=== PATIENT | male | born 1955 | race Caucasian/White ===

== ENCOUNTER 2019-04-29 15:42 | Observation (INO) | payer OTHER, MEDICARE ==
[~2019-04-29 15:42] MED LIST: Iopamidol-370 76% 500 ML 1 ML ONE
[2019-04-29 16:49] LABS: #Basophils 0.1 thou/uL (0.0-0.2); #Eosinphils 0.5 thou/uL (0.0-0.7); #Lymphocytes 1.9 thou/uL (1.20-3.40); #Monocytes 0.6 thou/uL (0.11-0.59); #Neutrophils 4.8 thou/uL (1.40-6.50); %Basophils 1.1 % (0.0-1.0); %Eosinophils 5.8 % (0.0-10.0); %Lymphocytes 24.4 % (21.0-51.0); %Monocytes 7.9 % (0.0-10.0); %Neutrophils 60.7 % (42.0-75.0); Hemoglobin 14.5 g/dL (14.0-18.0); Mean Corpuscular HGB CONC 35.2 g/dL (32.0-36.0); Mean Corpuscular Hemoglobin 30.6 pg (27.0-31.0); Mean Corpuscular Volume 86.8 fL (78.0-98.0); Mean Platelet Volume 7.7 fL (7.4-10.4); Platelet Count 266 thou/uL (130-400); RBC Distribution Width 11.9 % (11.5-14.5); Red Blood Cell (RBC) Count 4.74 mill/uL (4.70-6.10); White Blood Cell (WBC) Count 7.9 thou/uL (4.8-10.8)
[2019-04-29 17:09] LABS: ALT (SGPT) 37 U/L (8-55); AST (SGOT) 23 U/L (5-34); Albumin 4.4 g/dL (3.4-4.8); Alkaline Phosphatase 80 U/L (40-110); Anion Gap 12 mmol/L (10-20); BUN (Urea Nitrogen) 14 mg/dL (8.4-25.7); Bilirubin, Total 0.8 mg/dL (0.2-1.2); Calc. Creatinine Clearance 0 mL/min (70-130); Calcium 9.1 mg/dL (7.8-10.44); Carbon Dioxide 24 mmol/L (23-31); Chloride 109 mmol/L (98-107); Estimated GFR-MDRD Greater than 90; Globulin 2.9 g/dL (2.4-3.5); Glucose 99 mg/dL (80-115); Potassium 3.8 mmol/L (3.5-5.1); Protein, Total 7.3 g/dL (5.8-8.1); Sodium 141 mmol/L (136-145)
--- NOTE | 2019-04-29 17:48 | CT ---
CT OF FACIAL BONES PERFORMED WITH CONTRAST ENHANCEMENT: 04/29/19 HISTORY: Patient felt pain in left jaw. History of recent oral surgery. The visualized brain parenchyma appears unremarkable. The parotid and submandibular glands appear unremarkable. The epiglottis region appears unremarkable. Parapharyngeal spaces are clear. Tonsillar region appears unremarkable. Some minimal mucosa change is seen within the left maxillary and bilateral ethmoid air cells. There is a fracture through the left side of the body of the mandible. This occurs along the posterio r aspect of an expanded portion of the mandible. Teeth are absent in this region. This is an area of presumably the patient's recent surgery. The fracture is nondisplaced. Condyle is in normal position. The left condyle and left side of the mandible are unremarkable. IMPRESSION: Apparent postoperative changes of the left side of the mandible. There is an expansile cystic appeari ng area involving the body of the mandible with a nondisplaced fracture through the posterior aspect of this expanded portion of the bone. POS: ZENAIDA
[2019-04-29] MEDS ORDERED: Ketorolac Tromethamine 30 MG/ML VIAL ONE (17:55)
[2019-04-29] MEDS ORDERED: Morphine 4 MG/ML VIAL ONE ×2 (17:55→20:12)
--- NOTE | 2019-04-29 19:10 | RAD ---
PORTABLE CHEST: 04/29/19 HISTORY: Preop. COMPARISON: 12/15/15 study. Heart size and mediastinum are within normal limits. The lungs are clear of infiltrates. No significa nt bony findings. IMPRESSION: No active intrathoracic disease. POS: ZENAIDA
[2019-04-29] MEDS ORDERED: Ondansetron PF 4 MG/2 ML Vial IVP PRN (20:20)
[2019-04-29] MEDS ORDERED: hydrALAZINE 20 MG/ML VIAL SLOW IVP PRN (20:22)
--- NOTE | 2019-04-29 21:32 | HP ---
TIME OF ASSESSMENT: 1999 REASON FOR ADMISSION: Status post postoperative jaw fracture. HISTORY OF PRESENT ILLNESS: Mr. Welsh is a 64-year-old gentleman who presented to the emergency department with sudden onset of severe left-sided lower jaw pain. The patient states he had oral surgery three weeks ago. He apparently developed an infection involving the bilateral lower wisdom teeth. He required antibiotics and extraction of a total of five teeth. He states the jaw had to be shaved down thin on the left lower posterior mandible. He was advised not to chew anything hard on that side due to risk of fracture. The patient states today he went to rip a piece of skin from its finger using his front teeth and felt a sudden severe pain in the left side of his jaw. He had immediate swelling. Denies any bleeding. On arrival to the emergency department, he underwent CT imaging which showed an expansile cystic appearing area involving the body of the mandible with a nondisplaced fracture to the posterior aspect of that expanded portion of the bone. He had apparent postoperative changes on the left side of the mandible. His case was discussed with [facility] [place] who advised admission to the hospital with plans to have him undergo surgery tomorrow morning. He was advised to be admitted to the medical service for cardiac risk stratification preop per [facility] [place]. At this present time, the patient states his pain is well controlled. He was given Toradol and morphine in the emergency department. He has undergone an EKG which showed normal sinus rhythm with no ST changes or T-wave abnormalities. He has had laboratory studies done showing a normal white count of 7.9, hemoglobin 14.5, hematocrit 41.2, and platelets 266. BUN 14, creatinine 0.81, and GFR greater than 90. Troponin was done and negative. Chest x-ray was done showing no active intrathoracic disease. Patient has no complaints of chest pain or shortness of breath. Patient reports a history of mitral valve prolapse and MD x2. He follows with Dr. Miranda regularly and saw him for preoperative clearance prior to the most recent oral surgery. REVIEW OF SYSTEMS: All other review of systems apart from those mentioned above in HPI are negative. ALLERGIES: CODEINE, DEMEROL, MEPERIDINE, AND TYLENOL WITH CODEINE NO. 3. CURRENT MEDICATIONS: 1. Lisinopril. 2. Pantoprazole. 3. Simvastatin. 4. Metoprolol. 5. Fish oil. 6. Aspirin. PAST MEDICAL HISTORY: 1. Hypertension. 2. Hyperlipidemia. 3. Coronary artery disease. 4. MD x2, 2006 and 2010. No stents placed. 5. Mitral valve prolapse. 6. Chronic back pain. 7. GERD. 8. Asbestosis. PAST SURGICAL HISTORY: 1. Tonsillectomy. 2. Back surgery. 3. Cholecystectomy. 4. Colonoscopy x3. 5. Right knee surgery. 6. Oral surgery/extraction of teeth three weeks ago. SOCIAL HISTORY: Patient dips and reports drinking alcohol socially every 3 to 5 days. Denies any drug use. PHYSICAL EXAMINATION: GENERAL: Patient appears well developed, well nourished, is in no acute distress. VITAL SIGNS: Temperature 98.1, pulse 68, respirations 18, O2 saturation 96% on room air, and blood pressure 139/79. HEENT: Normocephalic and atraumatic. Pupils are equal, round, and reactive to light. Sclerae without icterus. Oropharynx, limited range of motion, but able to speak. Slight swelling to the left mandibular region. NECK: Supple. Mild discomfort to the left upper neck region. LUNGS: Clear to auscultation bilaterally. CARDIAC: Regular rate and rhythm. ABDOMEN: Soft, nontender, and nondistended. Normoactive bowel sounds present. No guarding or rigidity. No renal angle tenderness. EXTREMITIES: No lower leg swelling or edema. Peripheral pulses intact. SKIN: Warm and dry. INVESTIGATIONS: As mentioned above in the HPI. IMPRESSION AND PLAN: Mr. Welsh is a pleasant 64-year-old gentleman who is being admitted under the medical service due to his comorbidities and cardiac risk after presenting with severe left mandibular pain due to a nondisplaced fracture, status post recent tooth extraction three weeks ago. Patient with no signs of underlying infection. He is most concerned with his history of mitral valve prolapse and wanting to be seen by Dr. Miranda, his document review specialist, prior to surgery, with whom he had preoperative clearance with before his most recent surgery. EKG unremarkable. Troponin negative. Patient without any chest pain. He will be admitted under the medical service. We will continue with the following. 1. Per OMFS, patient will be n.p.o. at midnight. Plans for surgery tomorrow. EKG normal. We will obtain coag studies in the morning. Consult placed to Dr. Miranda for cardiac clearance. 2. Continue pain management. 3. We will monitor blood pressure and resume home medications once verified. We will order IV p.r.n. antihypertensives as well. 4. GI prophylaxis with famotidine 20 mg b.i.d. IV. 5. Deep venous thrombosis prophylaxis with mechanical SCDs. Anticoagulation contraindicated. Patient is ambulatory. 6. Code status full. Surrogate decision maker is his , Jaswinder Welsh. Patient's case was discussed with Dr. Ruby, who agrees with plan of care as described above. Job ID: [id number]
[2019-04-29] MEDS: Famotidine/PF 20 mg/2ml Vial SLOW IVP SCH (21:54)
[2019-04-29 22:11] LABS: Lactic Acid 0.9 mmol/L (0.5-2.2)
[2019-04-29] MEDS: Sodium Chloride 0.45% 1,000 ML IV SCH (23:22)
[2019-04-29] MEDS: Morphine 2 MG/ML SYRINGE SLOW IVP PRN (23:41)
[2019-04-30 00:58] VITALS: BMI 28.9
[2019-04-30] MEDS ORDERED: Morphine 2 MG/ML SYRINGE SLOW IVP SCH ×2 (02:15→10:00)
[2019-04-30] MEDS: Acetaminophen 650 MG in Premix Bag 1 BAG IVPB PRN ×3 (02:25→18:23)
[2019-04-30] MEDS: Morphine 2 MG/ML SYRINGE SLOW IVP PRN ×3 (05:43→21:27)
[2019-04-30 05:46] LABS: #Eosinphils 0.6 thou/uL (0.0-0.7); #Lymphocytes 2.6 thou/uL (1.20-3.40); #Monocytes 0.7 thou/uL (0.11-0.59); %Basophils 0.8 % (0.0-1.0); %Eosinophils 10.7 % (0.0-10.0); %Lymphocytes 42.9 % (21.0-51.0); %Monocytes 12.1 % (0.0-10.0); %Neutrophils 33.6 % (42.0-75.0); Hemoglobin 13.6 g/dL (14.0-18.0); Mean Corpuscular HGB CONC 34.4 g/dL (32.0-36.0); Mean Corpuscular Hemoglobin 30.1 pg (27.0-31.0); Mean Corpuscular Volume 87.6 fL (78.0-98.0); Mean Platelet Volume 7.8 fL (7.4-10.4); Platelet Count 240 thou/uL (130-400); RBC Distribution Width 11.9 % (11.5-14.5); Red Blood Cell (RBC) Count 4.51 mill/uL (4.70-6.10)
[2019-04-30 05:51] LABS: INR-International Normal Ratio 1.1; PTT 30.7 SEC (22.9-36.1); Prothrombin Time 14.4 SEC (12.0-14.7)
[2019-04-30 06:07] LABS: Anion Gap 13 mmol/L (10-20); BUN (Urea Nitrogen) 14 mg/dL (8.4-25.7); Calc. Creatinine Clearance 126 mL/min (70-130); Calcium 8.4 mg/dL (7.8-10.44); Carbon Dioxide 23 mmol/L (23-31); Chloride 107 mmol/L (98-107); Estimated GFR-MDRD Greater than 90; Glucose 95 mg/dL (80-115); Potassium 3.7 mmol/L (3.5-5.1); Sodium 139 mmol/L (136-145)
[2019-04-30] MEDS: Famotidine/PF 20 mg/2ml Vial SLOW IVP SCH ×2 (08:38→21:39)
[2019-04-30] MEDS ORDERED: FLU VACC QS2019-20(6MOS UP)/PF 60 MCG/0.5 ML SYRINGE IM ONE (09:00)
[2019-04-30] MEDS ORDERED: Lidocaine 1% w/Epinephrine 1:100K 20 ML VIAL ONE (10:01)
[2019-04-30] MEDS ORDERED: Chlorhexidine Gluconate 15 ML UDCUP SSP ONE ×2 (10:01→12:39)
[2019-04-30] MEDS ORDERED: Bacitracin Zinc Ointment 30 gm TUBE ONE (10:01)
[2019-04-30] MEDS ORDERED: CEFAZOLIN 2 GM in Premix Bag 1 BAG IVPB SCH (10:15)
[2019-04-30] MEDS ORDERED: Dexamethasone 10 MG/ML VIAL SLOW IVP SCH (10:15)
[2019-04-30] MEDS ORDERED: Scopolamine 1.5 mg/72 hour Patch ONE (11:13)
[2019-04-30] MEDS ORDERED: Ondansetron PF 4 MG/2 ML Vial ONE ×2 (11:13→14:01)
[2019-04-30] MEDS ORDERED: Famotidine/PF 20 mg/2ml Vial ONE (11:13)
[2019-04-30] MEDS ORDERED: Fentanyl 100 MCG/2 ML VIAL ONE ×2 (11:17→14:51)
[2019-04-30] MEDS ORDERED: Ketamine 50 MG/ML (10ML VIAL) ONE (11:18)
--- NOTE | 2019-04-30 11:31 | CON ---
DATE OF CONSULTATION: REASON FOR CONSULTATION: Preoperative clearance for jaw surgery. HISTORY OF PRESENT ILLNESS: Mr. Welsh is a 64-year-old gentleman, whom I have seen and evaluated in the past. He has a history of previous NM in 2006, not amenable to percutaneous intervention. He states he had small vessel disease. This is at an outlying facility. He has done well since that time. He does have a history of kzwvaita-fm-stqrfi mitral regurgitation. He recently broke his jaw. Please see details from surgeon. He denies chest pain or pressure. He states he is not limited from an activity standpoint. He is very active. No PND, orthopnea, lower extremity edema, syncope, or presyncope present. PAST MEDICAL HISTORY: As above including; 1. Hypertension. 2. Hyperlipidemia. 3. Acid reflux. 4. Cholecystectomy. HOME MEDICATIONS: Include; 1. Fish oil. 2. Aspirin. 3. Pantoprazole. 4. Lisinopril. 5. Metoprolol. 6. Zocor. FAMILY HISTORY: Negative for CAD. ALLERGIES: ACETAMINOPHEN, MEPERIDINE. REVIEW OF SYSTEMS: A 10-point review of systems is reviewed and as above, otherwise negative. PHYSICAL EXAMINATION: VITAL SIGNS: Blood pressure 126/78, pulse 65, temperature 97.9. GENERAL: Patient is a pleasant gentleman, who is in no acute distress. The patient appears their stated age. NEUROLOGIC: The patient is alert and oriented x3 with no focal neurologic deficits. HEENT: Sclerae without icterus. Mouth has moist mucous membranes with normal pallor. NECK: No JVD. Carotid upstroke brisk. No bruits bilaterally. LUNGS: Clear to auscultation with unlabored respirations. BACK: No scoliosis or kyphosis. CARDIAC: Regular rate and rhythm with 2/6 systolic ejection murmur. ABDOMEN: Soft, nontender, nondistended. No peritoneal signs present. No hepatosplenomegaly. No abnormal striae. EXTREMITIES: 2+ femoral and 2+ dorsalis pedis pulses. No cyanosis, clubbing, or edema. SKIN: No gross abnormalities. DIAGNOSTIC DATA: Echo Doppler showed normal LVEF with wvzxwvuj-ga-crdvzt MR, mitral valve prolapse present. PERTINENT LABORATORY DATA: CK troponin negative. Hemoglobin 13.6. IMPRESSION: 1. Preoperative clearance. 2. Recent jaw fracture. 3. Previous history of coronary artery disease. RECOMMENDATIONS: Mr. Welsh is a very active person with no current symptoms. His activity is not limited. He gives a history of having CAD with NM of unknown intensity noted over 10 years ago. He states he was found to have very small vessel disease. I discussed the case with the surgeon. There going to be minimal fluid shifts noted with minimal blood loss. At this point, I would feel Mr. Welsh is at low risk for cardiac complications. Otherwise, I have no further recommendations. From my standpoint, he will be okay to transfer back to the surgical floor unless changes arise. We will follow peripherally. Job ID: [id number]
[2019-04-30] MEDS ORDERED: Midazolam HCl 2 mg/2 ml Vial ONE (11:51)
[2019-04-30] MEDS ORDERED: Bupivacaine PF 0.5% 30 ML VIAL ONE (13:58)
[2019-04-30] MEDS ORDERED: PROPOFOL 200 MG/20 ML VIAL ONE (14:01)
[2019-04-30] MEDS ORDERED: Glycopyrrolate 0.2 MG/ML 5 ML SYRINGE ONE (14:01)
[2019-04-30] MEDS ORDERED: Lidocaine 1% PF 5 ML VIAL ONE (14:01)
[2019-04-30] MEDS ORDERED: Labetalol HCl 100 MG/20 ML VIAL ONE (14:01)
[2019-04-30] MEDS ORDERED: Dexamethasone 20 MG/5 ML VIAL ONE (14:01)
[2019-04-30] MEDS ORDERED: Rocuronium Bromide 10 MG/ML (10ML VIAL) ONE (14:01)
[2019-04-30] MEDS ORDERED: Succinylcholine Chloride 20 MG/ML 10 ml SYRINGE FS ONE (14:01)
[2019-04-30] MEDS ORDERED: HYDROmorphone 2 MG/ML VIAL ONE (14:02)
[2019-04-30] MEDS ORDERED: Promethazine HCl 25 MG/ML VIAL IM PRN (15:05)
[2019-04-30] MEDS ORDERED: Ondansetron HCl/PF 4 MG/2 ML Vial IVP PRN (15:05)
[2019-04-30] MEDS ORDERED: Promethazine HCl 25 MG/ML VIAL SLOW IVP PRN (15:05)
--- NOTE | 2019-04-30 15:29 | CT ---
CT facial bones: Multiple axial tones obtained through facial bones without contrast. Multiplanar reconstruction. INDICATIONS:Open reduction internal fixation mandible. Extraction of tooth left mandible with seconda ry infection. Underwent debridement and open reduction. COMPARISON:None FINDINGS: Nasal bones appear intact. There is fracture involving the floor the orbit on the left, probably old injury. Orbital fat herniat es through this defect into the roof of the left maxillary sinus. No entrapment of any extraocular muscle. zygoma appear intact. Paranasal sinuses are well aerated.Mild mucosal edema in the ethmoid air cells. Tiny mucous retention cyst medial wall left maxillary sinus. Maxilla is intact. All maxillary teeth have been extracted. Review of mandible reveals metallic plate along the lateral mandible on the left at the ramus transf ixing a mandibular fracture. Mandibular molars have been extracted. Cortical debridement along the buccal surface the mandible is consistent with postoperative change. Tiny gas pockets in the subcutan eous tissues consistent with postoperative change. No evidence of fluid collection or abscess collection. Haziness in the subcutaneous soft tissues and thickening of the platysma could represent postoperative or inflammatory change. IMPRESSION: Postoperative changes left mandible. Haziness in the subcutaneous tissues could represent postoperati ve or infectious change. No focal fluid or abscess collection.
--- NOTE | 2019-04-30 17:26 | PDOC.HOSPP ---
- Subjective Encounter Date: 04/30/19 Encounter Time: 09:53 Subjective: 64 y/o with CAD, mitral prolapse, HTN, with recent teeth extraction admitted with acute onset of left jaw pain and swelling. Evaluation showed acyute jaw fracture. Surgery is planned. Feeling better with better analgesia. - Objective Vital Signs & Weight: Vital Signs (12 hours) Temp Pulse Resp BP Pulse Ox 04/30/19 15:20 98.6 F 91 18 160/89 H 94 L 04/30/19 11:20 98.4 F 63 20 131/79 96 04/30/19 07:47 97.9 F 65 20 126/78 96 Weight Weight 207 lb 6.4 oz I&O: 04/29/19 04/30/19 05/01/19 06:59 06:59 06:59 Intake Total 986 Balance 986 Result Diagrams: 04/30/19 05:33 04/30/19 05:32 Hospitalist ROS - Medication Medications: Active Medications Generic Name Dose Route Start Last Admin Trade Name Freq PRN Reason Stop Dose Admin Famotidine 20 mg 04/29/19 21:00 04/30/19 08:38 Pepcid SLOW IVP 20 mg Q12HR PETE Administration Sodium Chloride 1,000 mls @ 50 mls/hr 04/29/19 22:45 04/29/19 23:22 1/2 Normal Saline IV 1,000 mls .Q20H PETE Administration Acetaminophen 650 mg/ Device 65 mls @ 260 mls/hr 04/30/19 02:08 04/30/19 08: 38 IVPB 05/01/19 02:09 65 mls Q6H PRN Administration Mild Pain (1-3) Morphine Sulfate 2 mg 04/30/19 14:54 04/30/19 16:16 Morphine SLOW IVP 2 mg Q4H PRN Administration Pain - Exam General Appearance: awake alert Eye: anicteric sclera ENT: normocephalic atraumatic, moist mucosa Neck: supple, symmetric, no JVD Heart: RRR Respiratory: no wheezes, no rales, no ronchi, normal chest expansion Gastrointestinal: soft, non-tender, non-distended, normal bowel sounds Extremities: no cyanosis, no edema Neurological: cranial nerve grossly intact, no focal deficits Psychiatric: normal affect, A&O x 3 Hosp A/P (1) Fracture of left side of mandibular body Code(s): S02.602A - FRACTURE OF UNSPECIFIED PART OF BODY OF LEFT MANDIBLE, INIT Status: Acute (2) Acute pain Code(s): R52 - PAIN, UNSPECIFIED Status: Acute (3) GERD (gastroesophageal reflux disease) Code(s): K21.9 - GASTRO-ESOPHAGEAL REFLUX DISEASE WITHOUT ESOPHAGITIS Status: Acute (4) CAD (coronary artery disease) Code(s): I25.10 - ATHSCL HEART DISEASE OF [place] CORONARY ARTERY W/O ANG PCTRS Status: Chronic (5) Dyslipidemia Code(s): E78.5 - HYPERLIPIDEMIA, UNSPECIFIED Status: Chronic (6) Hypertension Code(s): I10 - ESSENTIAL (PRIMARY) HYPERTENSION Status: Chronic - Plan Continue analgesic as needed Surgery by [facility] Continue other treatments.
[2019-04-30] MEDS: Sodium Chloride 0.45% 1,000 ML IV SCH (18:18)
[2019-04-30] MEDS: Ibuprofen 600 MG TAB PO PRN (18:23)
[2019-04-30] MEDS ORDERED: Dexamethasone 4 mg/ml Vial SLOW IVP SCH (20:00)
[2019-04-30] MEDS: CEFAZOLIN 2 GM in Premix Bag 1 BAG IVPB SCH (21:38)
[2019-04-30] MEDS: Chlorhexidine Gluconate 15 ML UDCUP SSP SCH (22:13)
[2019-05-01] MEDS: Morphine 2 MG/ML SYRINGE SLOW IVP PRN (02:50)
[2019-05-01] MEDS: CEFAZOLIN 2 GM in Premix Bag 1 BAG IVPB SCH ×2 (04:46→13:02)
[2019-05-01] MEDS: Chlorhexidine Gluconate 15 ML UDCUP SSP SCH (08:07)
[2019-05-01] MEDS: Famotidine/PF 20 mg/2ml Vial SLOW IVP SCH (08:07)
[2019-05-01] MEDS: Ibuprofen 600 MG TAB PO PRN (08:14)
[2019-05-01 10:46] VITALS: BP 147/80; TEMP 97.9
--- NOTE | 2019-05-01 19:44 | DIS ---
DATE OF ADMISSION: 04/29/2019 DATE OF DISCHARGE: 05/01/2019 DISCHARGE DIAGNOSES: 1. Left mandibular fracture. 2. Acute traumatic pain. 3. Gastroesophageal reflux disease. 4. Coronary artery disease. 5. Dyslipidemia. 6. Hypertension. 7. Chronic diastolic heart failure. 8. Cjokhdqu-jn-xfcuet mitral regurgitation. 9. Mitral prolapse. CONSULTS: 1. Cardiology. 2. Oral Maxillofacial Surgery. HOSPITAL COURSE: A 64-year-old male with known history of coronary artery disease, mitral valve prolapse, hypertension, who recently had left jaw teeth extraction for infection and admitted with acute onset of left jaw pain and swelling. Evaluation showed acute mandibular fracture. Oral Maxillofacial Surgery consult was obtained and following cardiac clearance by Cardiology, the patient had open reduction and internal fixation of the fractured left mandible. Postoperative recovery was uneventful and the patient was subsequently discharged home. PHYSICAL EXAMINATION: VITAL SIGNS: Temperature 97.9, pulse 75, respiratory rate 20, SpO2 of 95% on room air, blood pressure 147/80. GENERAL: Male patient, in no obvious distress. Afebrile. Anicteric. Acyanotic. HEENT: Normocephalic. Mild left jaw and lower facial swelling. Oral mucosa is moist. CARDIOVASCULAR: Regular rhythm and rate with normal heart sounds 1 and 2. Soft systolic murmur noted. RESPIRATORY: Good air entry bilaterally with no obvious crackle or rhonchi or use of accessory muscles. GI: Full, soft, nontender, nondistended with normal bowel sounds. EXTREMITIES: Grossly normal looking, atraumatic with no obvious edema or erythema. MANAGER SOCIAL: Conscious, alert, oriented x3 with appropriate mental status. DISCHARGE DISPOSITION: Home. DISCHARGE CONDITION: Improved. DISCHARGE INSTRUCTIONS: 1. The patient is to follow up with oral maxillofacial surgeon in 1 week. 2. The patient was instructed to be on non-chewable foods, but especially on large lipids in the next 6 weeks. DISCHARGE MEDICATIONS: 1. Aspirin 81 mg p.o. daily. 2. Lisinopril 40 mg p.o. daily. 3. Metoprolol 25 mg p.o. daily. 4. [place]-3 fatty acid one capsule p.o. daily. 5. Protonix 40 mg p.o. daily. 6. Simvastatin 20 mg p.o. daily at the evening. 7. Chlorhexidine gluconate mouthwash 15 mL swish and spit. 8. Hydrocodone/acetaminophen 5/325 every 4 hours p.r.n. This discharge took less than 30 minutes. Job ID: [id number]
--- NOTE | 2019-05-05 10:55 | OP ---
DATE OF PROCEDURE: 04/29/2019 PREOPERATIVE DIAGNOSIS: Left mandibular body angle fracture, nonrestorable tooth #20. POSTOPERATIVE DIAGNOSIS: Left mandibular angle body fracture, nonrestorable tooth #20. PROCEDURES PERFORMED: Open reduction and internal fixation of left mandibular angle body fracture, extraction of tooth #20. TECHNICAL FELLOW SURGEON: Alli Fernandez DDS, MD, oral maxillofacial surgeon. FLUIDS: 1500 mL of isotonic crystalloid. ESTIMATED BLOOD LOSS: 25 mL. FINDINGS: Complete linear mandibular left body fracture, 1 x 1 cm lingual plate fracture separate from linear fracture, appeared to have periosteal attachment, elected to leave. Soft tissue dehiscence along the medial aspect of the mandible, exposed bone 1 cm. Gross caries, tooth #20. Tooth roots identified in socket site #17 adjacent to the inferior alveolar nerve, noted to be stable with no pathology. URINE OUTPUT: None, no Graf. HARDWARE: Titanium strut plate with 8 mm monocortical screws, 5-6 mm in length. DISPOSITION: The patient was extubated, transferred to PACU. INDICATIONS FOR PROCEDURE: The patient presented to the emergency department 2 weeks status post extraction of multiple teeth. The patient stated he felt the jaw popped. The patient was complaining of pain and discomfort, presented to the ED. Oral Maxillofacial Surgery was consulted. Upon review of clinical exam and CT findings, noted a left mandibular body angle fracture requiring open reduction and internal fixation via operating room under general anesthesia. Discussed the recommended procedures. Discussed risks, benefits, indications, and alternatives. Discussed with patient the application of titanium plates. Due to the position of the inferior alveolar nerve running its course along the inferior border, unable to put a 2.5 mm reconstruction plate due to risk of ultimate inferior alveolar nerve paresthesia of left V3 distribution. Advised the patient because he is edentulous in the maxilla, unable to provide maxillomandibular fixation, so the patient was reinforced and instructed to have a non-chew diet for 6 weeks with application of functionally stable fixation to include a strut along the left mandibular body and angle. DESCRIPTION OF PROCEDURE: On the day of surgery, the patient was met in the preoperative holding area. The patient's identification and site were confirmed. The patient elected to continue with open reduction and internal fixation of left mandibular body angle fracture and extraction of tooth #20. At this point, the patient was transferred to operating room #11. The patient was transferred to the operating table in supine position. The patient was connected to the cardiopulmonary monitors, induced into a state of general anesthesia via a right nasal endotracheal tube. The tube was secured by the surgical team. The patient was prepped and draped in a standard sterile fashion. Throat pack was placed. We then used a 7 mL of 2% lidocaine with 1:100,000 epinephrine into the left inferior alveolar nerve and left buccal vestibular region. We then directed our attention to the left mandible. Using a 15 blade, made a crestal incision through the previous incision site extending anteriorly with oblique vertical release along tooth #21 and distal buccal release along the external oblique ridge. A full-thickness mucoperiosteal flap dissected. Granulation and inflammatory tissue was noted within the extraction sites of 17, 18, and 19. Site was curetted and irrigated copiously with sterile saline. Identification of the medial soft tissue dehiscence with exposed bone along the medial aspect of the lingual cortex. Site was noted to be partially stable and was reduced to allow for primary soft tissue closure using a surgical handpiece under sterile saline irrigation. At this point, we identified the complete mobile segments of the linear fracture of the mandible. Using a titanium strut plate due to the inability or high risk of inferior alveolar nerve damage were to elect to use a 2.5 mm reconstruction plate along the being displaced inferiorly along the inferior border, approximately 1 mm of bone inferior border of mandible. Unable to place bicortical fixation. At this point, using a titanium strut plate, placed 8 mm monocortical screws with anatomic reduction of the segment. Utilization of the denture to confirm occlusion was performed. Monocortical fixation was placed through 2 separate skin incisions. Blunt dissection was completed to allow screws. Next, copious irrigation of site, extraction of tooth #20 using elevators and forceps. Using 4-0 Vicryl sutures, reapproximation of subcutaneous submucosal tissue was performed in a tension-free with utilization of the periosteal releases. At this point, multiple 4-0 chromic and 4-0 Vicryl sutures were utilized to obtain a primary tension-free closure to allow coverage of the plate. Gel-Foam was placed in all extraction sites. At this point, the procedure was deemed complete. The patient was extubated and transferred to PACU with spontaneous respirations intact. Job ID: [id number]
== END 2019-05-01 12:40 | disposition home or self-care (01) ==
LOC: ERS 15:42 → SURG A 19:39
PROVIDERS: ADMIT Hospitalist; ATTEND Hospitalist
PROC: 0NSV04Z Reposition Left Mandible with Internal Fixation Device, Open Approach (ICD-10-PCS; principal; 2019-05-01)
PROC: 2W31X9Z Immobilization of Face using Wire (ICD-10-PCS; 2019-05-01)
PROC: 0CDXXZ0 Extraction of Lower Tooth, Single, External Approach (ICD-10-PCS; 2019-05-01)
DX: S02.602A Fracture of unspecified part of body of left mandible, initial encounter for closed fracture (principal); K02.9 Dental caries, unspecified; E78.5 Hyperlipidemia, unspecified; I10 Essential (primary) hypertension; I25.10 Atherosclerotic heart disease of native coronary artery without angina pectoris; I25.2 Old myocardial infarction; F17.220 Nicotine dependence, chewing tobacco, uncomplicated; K21.9 Gastro-esophageal reflux disease without esophagitis; Z88.5 Allergy status to narcotic agent; Z79.82 Long term (current) use of aspirin; Z79.899 Other long term (current) drug therapy
CPT/HCPCS: 36415; 70486; 70487; 71045; 80048; 80053; 83605; 83735; 83880; 84484; 85025; 85610; 85730; 90471; 90686; 90732; 93005; 93306; 96361; 96365; 96374; 96375; 96376; C1713; G0008; G0009; G0378; J0131; J0690; J1100; J1170; J1885; J2001; J2250; J2270; J2405; J2704; J3010; Q9967; S0020; S0028

== ENCOUNTER 2022-09-17 12:51 | Emergency (ER) | payer MEDICARE ==
[2022-09-17] MEDS ORDERED: Diltiazem 125 MG/25 ML SDV ONE (13:27)
[2022-09-17 13:39] LABS: #Basophils 0.1 thou/uL (0.0-0.2); #Eosinphils 0.4 thou/uL (0.0-0.7); #Monocytes 0.9 thou/uL (0.11-0.59); #Neutrophils 6.9 thou/uL (1.40-6.50); %Lymphocytes 17.9 % (21.0-51.0); %Monocytes 8.6 % (0.0-10.0); %Neutrophils 68.2 % (42.0-75.0); Hemoglobin 13.9 g/dL (14.0-18.0); Mean Corpuscular HGB CONC 34.6 g/dL (32.0-36.0); Mean Corpuscular Hemoglobin 29.4 pg (27.0-31.0); Mean Corpuscular Volume 85.2 fl (78.0-98.0); Mean Platelet Volume 9.5 fL (7.4-10.4); Platelet Count 498 10x3/uL (130-400); RBC Distribution Width 13.1 % (11.5-14.5); Red Blood Cell (RBC) Count 4.72 mill/uL (4.70-6.10); White Blood Cell (WBC) Count 10.1 10x3/uL (4.8-10.8)
[2022-09-17 14:20] LABS: Anion Gap 16 mmol/L (10-20); BUN (Urea Nitrogen) 10 mg/dL (8.4-25.7); Calc. Creatinine Clearance 0 mL/min (70-130); Calcium 9.4 mg/dL (7.8-10.44); Carbon Dioxide 21 mmol/L (23-31); Chloride 103 mmol/L (98-107); Estimated GFR 90; Glucose 127 mg/dL (80-115); Potassium 3.5 mmol/L (3.5-5.1); Sodium 136 mmol/L (136-145)
[2022-09-17 14:50] LABS: Magnesium 1.7 mg/dL (1.6-2.6)
[2022-09-17] MEDS ORDERED: Magnesium 2 GM/50 ML BAG (IN WATER) ONE (15:09)
== END 2022-09-17 16:22 | disposition home or self-care (01) ==
LOC: ERS 12:51
DX: I48.91 Unspecified atrial fibrillation (principal); E83.42 Hypomagnesemia; I10 Essential (primary) hypertension; Z79.82 Long term (current) use of aspirin; Z79.01 Long term (current) use of anticoagulants
CPT/HCPCS: 71045; 80048; 83735; 83880; 84484; 85025; 93005; 96365; 96375; J3475

== ENCOUNTER 2022-12-10 05:47 | Day surgery (SDC) | payer MEDICARE ==
[2022-12-07 13:35] VITALS: BMI 29.2
[2022-12-10] MEDS ORDERED: Glycopyrrolate 0.2 MG/ML 5 ML SYRINGE ONE (08:07)
[2022-12-10] MEDS ORDERED: PROPOFOL 200 MG/20 ML VIAL ONE (08:07)
== END 2022-12-10 14:04 ==
LOC: SDC 05:47
PROVIDERS: ATTEND Internal Medicine Cardiovascular Disease
PROC: B245ZZ4 Ultrasonography of Left Heart, Transesophageal (ICD-10-PCS; principal; 2022-12-10)
DX: I48.0 Paroxysmal atrial fibrillation (principal); I34.0 Nonrheumatic mitral (valve) insufficiency; I25.10 Atherosclerotic heart disease of native coronary artery without angina pectoris; Q21.12 Patent foramen ovale; E78.2 Mixed hyperlipidemia; I25.2 Old myocardial infarction; I10 Essential (primary) hypertension; Z98.890 Other specified postprocedural states; K21.9 Gastro-esophageal reflux disease without esophagitis; G47.33 Obstructive sleep apnea (adult) (pediatric); Z90.89 Acquired absence of other organs; Z90.49 Acquired absence of other specified parts of digestive tract; Z88.5 Allergy status to narcotic agent
CPT/HCPCS: 93312; J2704